=== PATIENT | female | born 2000 | race Caucasian/White ===

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

== ENCOUNTER 2021-04-21 13:29 | Inpatient (IN) | payer MEDICAID, SELFPAY ==
[2021-04-21] VITALS (55 sets, daily range): BP systolic 106–189; BP diastolic 58–126; PULSE 53–77; RESP 17; TEMP 35.9–37.1; O2SAT 90–100; BMI 28.9
[2021-04-21 13:43] LABS: Amphetamines Screen Urine Negative (Negative); Barbiturates Screen Urine Negative (Negative); Benzodiazepines Screen Urine Negative (Negative); Cocaine Screen Urine Negative (Negative); Opiate Screen Urine Negative (Negative); PCP Screen Urine Negative (Negative); THC Screen Urine Positive (Negative)
[2021-04-21 13:48] LABS: Bilirubin Urine Neg (Negative); Blood Urine Neg (Negative); Glucose Urine UA Norm (Normal); Ketones Urine 1+ (Negative); Leukocyte Esterase Urine Trace (Negative); Nitrate Urine Negative (Negative); Protein Urine Neg (Negative); RBC Urine 0-4 /hpf (0-2); Specific Gravity, Urine 1.015 (1.005-1.030); Squamous Epithelial Cell Urine 15-25 /hpf (0-5); Urine Appearance Clear (CLEAR); Urine Color Yellow (Yellow); Urobilinogen Urine Neg (Negative); WBC Urine 0-4 /hpf (0-5); pH Urine 7 (5-7)
[2021-04-21 13:49] LABS: Add Urine Culture? No; Bacteria Urine TRACE /hpf
[2021-04-21] MEDS: lactated ringers 1,000 ML 999 ML IV ×2 (14:08→15:29)
[2021-04-21] MEDS: oxytocin 30 UNIT/500 ML BAG IV (14:09)
[2021-04-21] MEDS: ampicillin 2,000 MG in sodium chloride 0.9% (plus) 50 ML 100 MG IV (14:12)
[2021-04-21 14:25] LABS: Basophils % 0.2 %; Eosinophils # 0.1 10^3/uL (0.0-0.8); Eosinophils % 0.7 %; Hematocrit 32.8 % (37.0-47.0); Hemoglobin 10.9 g/dL (11.5-15.3); Lymphocytes # 2.7 10^3/uL (1.5-6.5); Lymphocytes % 21.7 %; Mean Corpuscular HGB Conc 33.2 g/dL (30.0-36.0); Mean Corpuscular Hemoglobin 29.3 pg (28.0-34.0); Mean Corpuscular Volume 88.2 fl (81-99); Mean Platelet Volume 10.4 fL (7.4-10.4); Monocytes # 0.8 10^3/uL (0.2-0.9); Monocytes % 6.9 %; Neutrophils % 69.3 %; Nucleated Red Blood Cells % 0 %; Platelet Count 253 10^3/cmm (130-400); Red Blood Count 3.72 10^6/uL (4.1-5.3); Red Cell Distribution Width 13.7 % (12.1-15.1); White Blood Count 12.3 10^3/uL (4.5-13.0)
--- NOTE | 2021-04-21 16:25 | ANES.PREANE2 ---
Pre-Anesthetic Assessment Height/Weight: Height 1.65 m Weight 78.925 kg Temp Pulse Resp BP Pulse Ox 97.9 F 60 17 130/82 99 04/21/21 15:40 04/21/21 16:21 04/21/21 13:43 04/21/21 16:21 04/21/21 16:01 epidural Familial anesthetic complications: none Was Beta Shana taken within 24 hours: N/A Was Clonidine taken within 24 hours: N/A Last intake: > 8hrs Social No alcohol and No tobacco Exam alert, oriented x 3, clear to auscultation bilaterally and regular rate & rhythm Airway Mallampati: Class III Dentition: full Anesthetic Plan ASA status: 2 Anesthesia: Regional (specify below) Risk of > 500 ml blood loss (7ml/kg in children): Yes, adequate IV access and fluids planned Medications/Allergies Home Medications Medication Instructions Recorded Confirmed Last Taken Type PNV 153-FA 400 mcg-om3 35 mg-dha 1 tab PO BID 10/17/20 04/21/21 Unknown History 25 mg-epa 5 mg-fish oil chew tablet ( Gummies) Allergies Allergy/AdvReac Type Severity Reaction Status Date / Time No Known Allergies Allergy Verified 10/17/20 08:34 Current Medications Generic Name Dose Route Start Last Admin Trade Name Freq PRN Reason Stop Dose Admin Ropivacaine 200 mg in 100 mls @ 13 mls/hr 04/21/21 14:00 04/21/21 15:37 Naropin Premix EPIDURAL 13 mls/hr .Q7H42M BALBINA Administration Lactated Ringer's 1,000 mls @ 999 mls/hr 04/21/21 13:48 04/21/21 15:56 Lactated Ringers IV 500 mls/hr .Q1H1M PRN Infusion See label comments Oxytocin 30 unit in 500 mls @ 1 mls/hr 04/21/21 14:00 04/21/21 16:00 Pitocin IV 11 milliunit/min .Q24H BALBINA 11 mls/hr Titration Protocol 1 MILLIUNIT/MIN PFSH Anesthesia Medical History Intestinal malrotation CT scan [facility] 05/2020 MDD (major depressive disorder) PTSD (post-traumatic stress disorder) Surgical History History of cholecystectomy History of gastroschisis Social History Smoking and tobacco status: former smoker Second hand smoke exposure: No Current gender identity: Female Female Reproductive History : 1 Data Anesthesia : 04/21/21 14:00 Short CBC 04/21/21 Range/Units 14:00 WBC 12.3 (4.5-13.0) 10^3/uL Hgb 10.9 L (11.5-15.3) g/dL Hct 32.8 L (37.0-47.0) % MCV 88.2 (81-99) fl Plt Count 253 (130-400) 10^3/cmm Neut % (Auto) 69.3 % Neut # (Auto) 8.50 H (1.8-8.0) 10^3/uL Urine 04/21/21 Range/Units 13:10 Urine Color Yellow (Yellow) Urine Appearance Clear (CLEAR) Urine pH 7 (5-7) Ur Specific [place] 1.015 (1.005-1.030) Urine Protein Neg (Negative) Urine Glucose (UA) Norm (Normal) Urine Ketones 1+ H (Negative) Urine Nitrate Negative (Negative) Urine Bilirubin Neg (Negative) Ur Leukocyte Esterase Trace H (Negative) Urine RBC 0-4 H (0-2) /hpf Urine WBC 0-4 H (0-5) /hpf Cardiac Studies: No Data to Display
--- NOTE | 2021-04-21 16:26 | ANES.PROC ---
Anesthesia Procedures Procedure/Date: 04/21/21 Epidural: Time Out Performed: Yes Consents Signed: Procedure Consent Consent: requested by attending/covering physician, from patient, from other, patient agrees to proceed and emergency procedure Lumbar Level: L3-L4 Epidural position: sitting Epidural procedure: sterile prep of area, 1% lidocaine to numb the area, 18 g needle, negative for paresthesia passed, neg for paresthesia, test dose given, 1.5% xylocaine 1:200k epi (5 cc), 0.2% Ropivacaine bolus ml, placed PCEA, no systemic response, sterile dressing applied, L.U.D. no apparent complications and 0.2% Ropiavacaine @ mls/hr (13)
[2021-04-21] MEDS: dextrose 5%-lactated ringers 1,000 ML 125 ML IV (17:38)
[2021-04-21] MEDS: ampicillin 1,000 MG in sodium chloride 0.9% (plus) 50 ML 100 MG IV (17:55)
--- NOTE | 2021-04-21 18:58 | P.HP_ITS ---
Providers/Chief Complaint Admitting Physician: Ramirez Houston MD Primary DIABETIC EDUCATOR: Ainsley Landa Chief Complaint: possible ROM HPI DIABETIC EDUCATOR History of Present Illness Malinda Orozco is a 21 year old 1 female at 36 weeks and 5 days per first trimester and 20-week ultrasound. She presented to the hospital after leaking fluid since last night. She arrived at her doctor's office today and she was sent here for further evaluation. Upon arrival here she was found to be nitrazine positive and found to be grossly ruptured. As result she was admitted and augmented. Present Details : 1 Para: 0 Labs Rubella: Immune RPR: Negative GBS: Unknown Review of Systems General: Reports: 10 or more systems reviewed and unremarkable except in HPI and below Const: Reports: fatigue; Denies: fever(s) Eyes: Denies: change in vision Card: Denies: chest pain Musc: Reports: back pain Martin/Lymph: Denies: easy bruising Medications/Allergies Home Medications Medication Instructions Recorded Confirmed Last Taken Type PNV 153-FA 400 mcg-om3 35 mg-dha 1 tab PO BID 10/17/20 04/21/21 Unknown History 25 mg-epa 5 mg-fish oil chew tablet ( Gummies) Allergies Allergy/AdvReac Type Severity Reaction Status Date / Time No Known Allergies Allergy Verified 10/17/20 08:34 PFSH DIABETIC EDUCATOR PFSH: Medical History Intestinal malrotation CT scan [facility] 05/2020 MDD (major depressive disorder) PTSD (post-traumatic stress disorder) Surgical History History of cholecystectomy History of gastroschisis Social History Smoking and tobacco status: former smoker Second hand smoke exposure: No Current gender identity: Female Vitals/I&O/Wt Last Vital Signs Temp 97.9 F 04/21/21 15:40 Pulse 67 04/21/21 18:48 Resp 17 04/21/21 13:43 BP 114/61 04/21/21 18:48 Pulse Ox 99 04/21/21 16:01 04/21/21 04/21/21 04/21/21 06:59 14:59 22:59 Intake Total 1.10 / 1.10 1509.30 / 1510.40 Balance 1.10 / 1.10 1509.30 / 1510.40 Weight last 48 hrs Weight 174 lb Physical Exam Const: COMMON NORMALS: patient oriented x3 and alert HENMT: COMMON NORMALS: moist oral mucous membranes HEAD & SCALP: normal to inspection Chest: COMMONS NORMALS: normal inspection of the chest Resp: COMMON NORMALS: clear to auscultation bilaterally AUSCULTATION: clear to auscultation bilaterally Cardio: COMMON NORMALS: regular rate and regular rhythm RATE: regular rate RHYTHM: regular rhythm GI: INSPECTION: Yes normal to inspection and Yes other (Gravid) Extremity: COMMON NORMALS: normal to inspection GENERAL: Yes edema (Trace) Neuro: COMMON NORMALS: patient oriented x3, moves all extremities and no sensory deficits noted SENSORIUM/ORIENTATION: Yes alert Psych: COMMON NORMALS: mental status grossly normal Skin: COMMON NORMALS: no rashes or lesions noted GENERAL SKIN EXAM: no rashes or lesions noted Urinary Catheter Management: Reynolds Latex: Cath Placed During This Visit: yes Urinary Catheter Date of Insertion: 04/21/21 Urinary Catheter Time of Insertion: 16:00 Data : 04/21/21 14:00 A&P Assessment and plan (1) 36 weeks gestation of : Since the patient appeared to have spontaneous rupture membranes since the night prior to admission to the hospital, decision was made to proceed with Pitocin. Patient was placed on high-dose Pitocin. Her GBS status is unknown. She is placed on ampicillin. Drug screen will be performed. Status: Acute (2) Spontaneous rupture of membranes: Status: Acute Attestations Medical Necessity Statement*: Routine labor and care. Coding Level of Care Code Acute Build And Release Manager for Chg Fwd Diagnoses 36 weeks gestation of Z3A.36 Spontaneous rupture of membranes
--- NOTE | 2021-04-21 19:03 | P.PCNOB_ITS ---
Delivery Note: Date of delivery: April 21, 2021 Pre-delivery diagnoses: 21-year-old 1 at 36 weeks and 5 days estimated gestational age presenting with spontaneous rupture membranes Post-delivery diagnoses: Spontaneous vaginal delivery Procedure: Spontaneous vaginal delivery Delivering Physician: Ramirez Houston Findings: 100 Pre-Delivery Course: The patient presented to the hospital with spontaneous rupture membranes. She was not having consistent contractions. She was placed on high-dose Pitocin. She was also started on ampicillin because her GBS status was unknown. She received 2 doses of ampicillin. She progressed to complete. Delivery: DELIVERY: The patient progressed to complete without difficulty. She delivered a female with a weight of 6 pound 9 ounces with Apgars of 8, 9. The baby was delivered from the JATINDER position and placed on the mother's abdomen. The cord was then clamped and cut. There was a nuchal cord x1. There was no meconium. The placenta and 3 vessel cord were delivered intact shortly thereafter. The perineum and vaginal vault were carefully examined. A first- degree left vaginal wall laceration was noted that did not require repair. Both the mother and the baby were in stable condition. Post-Delivery Status: Good A&P Assessment and plan (1) Spontaneous rupture of membranes: Status: Acute (2) 36 weeks gestation of : Status: Acute (3) Spontaneous vaginal delivery: I anticipate routine care. Status: Acute (4) Marijuana abuse: Drug screen Status: Acute Coding Level of Care Code Acute Corporation Secretary for g Fwd Diagnoses Spontaneous rupture of membranes 36 weeks gestation of Z3A.36 Spontaneous vaginal delivery O80 Marijuana abuse F12.10
[2021-04-21] MEDS: lanolin oint 7 gm 1 APPLIC TOPICAL (19:47)
[2021-04-21] MEDS: benzocaine-menthol 78 gm Canister 1 SPRAY TOPICAL (19:47)
[2021-04-21] MEDS: ibuprofen 800 mg tablet PO (21:24)
[2021-04-21] MEDS: ondansetron 2 mg/ML SDV 2 mL 4 MG IVP (21:25)
[2021-04-22 00:40] VITALS: BP 119/76; PULSE 76; TEMP 36.9; O2SAT 98
[2021-04-22 02:26] VITALS: BP 120/73; PULSE 79; TEMP 36.7; O2SAT 98
[2021-04-22 04:30] VITALS: BP 111/69; PULSE 51; TEMP 36.8; O2SAT 98
[2021-04-22 07:04] LABS: Hematocrit 29.5 % (37.0-47.0); Hemoglobin 9.6 g/dL (11.5-15.3); Mean Corpuscular HGB Conc 32.5 g/dL (30.0-36.0); Mean Corpuscular Hemoglobin 29.3 pg (28.0-34.0); Mean Corpuscular Volume 89.9 fl (81-99); Mean Platelet Volume 10.1 fL (7.4-10.4); Platelet Count 215 10^3/cmm (130-400); Red Blood Count 3.28 10^6/uL (4.1-5.3); Red Cell Distribution Width 13.8 % (12.1-15.1); White Blood Count 14.7 10^3/uL (4.5-13.0)
[2021-04-22] MEDS: prenatal vitamin Capsule 1 CAP PO (08:09)
[2021-04-22] MEDS: ibuprofen 800 mg tablet PO ×3 (08:09→21:29)
[2021-04-22] MEDS: docusate sodium 100 mg Capsule PO (08:09)
[2021-04-22 10:30] VITALS: BP 129/80; PULSE 74; RESP 16; TEMP 36.7; O2SAT 96
--- NOTE | 2021-04-22 12:52 | ANE.PACU2 ---
Inpatient post-anesthesia follow up: Airway intact: Yes Vital signs: Temperature 98.1 F Pulse Rate 74 Respiratory Rate 16 Blood Pressure 129/80 Pulse Oximetry 96 Oxygen Delivery Me thod Room Air Oxygen Flow Rate Fraction of Inspir ed Oxygen Hydration adequate: Yes Nausea and vomiting: No Pain level: 2 Mental status: Baseline
[2021-04-22 15:45] VITALS: BP 126/81; PULSE 74; RESP 16; TEMP 36.7; O2SAT 98
--- NOTE | 2021-04-22 18:39 | PM.OBGYPN ---
INDUSTRIAL SAFETY AND HEALTH SPECIALIST Subjective Labor: Station: +2 Amniotic Membrane Status: Leaking Monitor Mode: Palpation Contraction Pattern: Regular Status: Category I Vitals/I&O/Wt Last Vital Signs Temp 98.0 F 04/22/21 15:45 Pulse 74 04/22/21 15:45 Resp 16 04/22/21 15:45 BP 126/81 04/22/21 15:45 Pulse Ox 98 04/22/21 15:45 04/22/21 04/22/21 04/22/21 06:59 14:59 22:59 Output Total 300 / 1700 Balance -300 / 1237.500 Weight last 48 hrs Weight 174 lb Physical Exam Narrative: The patient is alert. She appears comfortable. Her heart has a regular rate and rhythm with no murmurs appreciated. Lungs are clear to auscultation bilaterally. Her fundus is firm and below the umbilicus. Urinary Catheter Management: Reynolds Latex: Cath Placed During This Visit: yes, but has since been removed by the nurse Reason for Continuing Indwelling Catheter: Decision to DC Catheter Urinary Catheter Date of Insertion: 04/21/21 Urinary Catheter Time of Insertion: 16:00 Date Urinary Catheter Removed: 04/21/21 Time Urinary Catheter Discontinued: 18:20 Data : 04/22/21 06:45 Micro: Microbiology 04/21/21 13:10 Chlamydia trachomatis (NAHED) - Final Urine Random Neisseria gonorrhoeae (NAHED) - Final A&P Assessment and plan (1) Spontaneous vaginal delivery: The patient is doing well. Her pain is well controlled. Her bleeding is within normal limits. She is still having some difficulty with breast-feeding. Status: Acute Attestations Medical Necessity Statement*: Routine care. I anticipate she will be discharged home tomorrow. Coding Level of Care Code Acute Cash Register Repairer for Chg Fwd Diagnoses Spontaneous vaginal delivery O80
[2021-04-22 21:42] VITALS: BP 132/76; PULSE 64; RESP 16; O2SAT 98
--- NOTE | 2021-04-23 01:10 | PM.OBGYDC ---
Discharge Providers SENIOR TELECOMMUNICATIONS CONSULTANT Date of Admission: 04/21/21 13:29 Date of Discharge: 04/23/21 Attending Provider at Admission: Ramirez Houston MD Attending Provider at Discharge: Ramirez Houston MD Diagnoses at Discharge Discharge Diagnosis (1) Spontaneous vaginal delivery: Status: Acute (2) Marijuana abuse: Status: Acute (3) Spontaneous rupture of membranes: Status: Acute (4) 36 weeks gestation of : Status: Acute Reason for Visit Reason for Visit: possible ROM Hospital Course Hospital Course The patient presented to the hospital with spontaneous rupture of membranes. She was then placed on Pitocin and ampicillin to augment her labor and to cover her due to her unknown group B strep status. She progressed to complete and had an unremarkable delivery of a healthy . Her course was unremarkable. Her bleeding was within normal limits. Her child initially breast-fed well, had a period where she was sleepy, then later began to breast-feed well prior to discharge. Her pain was well controlled. Information Peripartum Data: Infant Delivery Method: Vaginal Physical Exam Narrative: The patient is alert. She appears comfortable. Her heart has a regular rate and rhythm with no murmurs appreciated. Lungs are clear to auscultation bilaterally. Her fundus is firm and below the umbilicus. Urinary Catheter Management: Reynolds Latex: Cath Placed During This Visit: yes, but has since been removed by the nurse Reason for Continuing Indwelling Catheter: Decision to DC Catheter Urinary Catheter Date of Insertion: 04/21/21 Urinary Catheter Time of Insertion: 16:00 Date Urinary Catheter Removed: 04/21/21 Time Urinary Catheter Discontinued: 18:20 Discharge Data Studies Completed and Pending Laboratory Results WBC 14.7 10^3/uL (4.5-13.0) H 04/22/21 06:45 RBC 3.28 10^6/uL (4.1-5.3) L 04/22/21 06:45 Hgb 9.6 g/dL (11.5-15.3) L 04/22/21 06:45 Hct 29.5 % (37.0-47.0) L 04/22/21 06:45 MCV 89.9 fl (81-99) 04/22/21 06:45 MCH 29.3 pg (28.0-34.0) 04/22/21 06:45 MCHC 32.5 g/dL (30.0-36.0) 04/22/21 06:45 RDW 13.8 % (12.1-15.1) 04/22/21 06:45 Plt Count 215 10^3/cmm (130-400) 04/22/21 06:45 MPV 10.1 fL (7.4-10.4) 04/22/21 06:45 Neut % (Auto) 69.3 % 04/21/21 14:00 Lymph % (Auto) 21.7 % 04/21/21 14:00 [place] % (Auto) 6.9 % 04/21/21 14:00 Eos % (Auto) 0.7 % 04/21/21 14:00 Baso % (Auto) 0.2 % 04/21/21 14:00 Neut # (Auto) 8.50 10^3/uL (1.8-8.0) H 04/21/21 14:00 Lymph # (Auto) 2.7 10^3/uL (1.5-6.5) 04/21/21 14:00 [place] # (Auto) 0.8 10^3/uL (0.2-0.9) 04/21/21 14:00 Eos # (Auto) 0.1 10^3/uL (0.0-0.8) 04/21/21 14:00 Baso # (Auto) 0.0 10^3/uL (0.0-0.1) 04/21/21 14:00 Nucleated RBC % (auto) 0 % 04/21/21 14:00 Nucleated RBCs # 0.0 /100WBC 04/21/21 14:00 Urine Color Yellow (Yellow) 04/21/21 13:10 Urine Appearance Clear (CLEAR) 04/21/21 13:10 Urine pH 7 (5-7) 04/21/21 13:10 Ur Specific Barrett 1.015 (1.005-1.030) 04/21/21 13:10 Urine Protein Neg (Negative) 04/21/21 13:10 Urine Glucose (UA) Norm (Normal) 04/21/21 13:10 Urine Ketones 1+ (Negative) H 04/21/21 13:10 Urine Blood Neg (Negative) 04/21/21 13:10 Urine Nitrate Negative (Negative) 04/21/21 13:10 Urine Bilirubin Neg (Negative) 04/21/21 13:10 Urine Urobilinogen Neg mg/dL (Negative) 04/21/21 13:10 Ur Leukocyte Esterase Trace (Negative) H 04/21/21 13:10 Urine RBC 0-4 /hpf (0-2) H 04/21/21 13:10 Urine WBC 0-4 /hpf (0-5) H 04/21/21 13:10 Ur Squamous Epith Cells 15-25 /hpf (0-5) H 04/21/21 13:10 Amorphous Sediment Not Reportable 04/21/21 13:10 Urine Bacteria Trace /hpf (NONE) 04/21/21 13:10 Urine Opiates Screen Negative ng/mL (Negative) 04/21/21 13:10 Ur Barbiturates Screen Negative ng/mL (Negative) 04/21/21 13:10 Ur Phencyclidine Scrn Negative ng/mL (Negative) 04/21/21 13:10 Ur Amphetamines Screen Negative ng/mL (Negative) 04/21/21 13:10 U Benzodiazepines Scrn Negative ng/mL (Negative) 04/21/21 13:10 Urine Cocaine Screen Negative ng/mL (Negative) 04/21/21 13:10 U Marijuana (THC) Screen Positive ng/mL (Negative) H 04/21/21 13:10 Vitals Last Vital Signs Temp 98.0 F 04/22/21 15:45 Pulse 64 04/22/21 21:42 Resp 16 04/22/21 21:42 BP 132/76 04/22/21 21:42 Pulse Ox 98 04/22/21 21:42 Discharge Plan Discharge Patient Disposition: Home Condition: Stable Prescriptions: New ibuprofen 800 mg Tablet 800 mg PO TID Qty: 45 0RF Continued Gummies 400 mcg-35 mg- 25 mg-5 mg Tablet,Chewable 1 tab PO BID 0RF Discharge Orders: Discharge Order (Routine); Ordered 04/23/21 Ordered By: Ramirez Houston Referrals: Ainsley Landa DO [Staff Physician] - 05/12/21 2:20 pm Discharge Diet: Advance as tolerated Discharge Activity: Resume usual activity Patient Instructions: Depression (DC), Perineal Care (DC), Bleeding (DC), Preeclampsia and Eclampsia After Delivery (GEN), OB Food/Drug Interaction Guide, OB Care at Home, Opioid Safety, OB Vaginal Deliveries Discharge Attestations SENIOR TELECOMMUNICATIONS CONSULTANT Time Spent in Discharge Care*: less than 30 min Time Spent in Smoking Cessation: Time spent discussing smoking cessation with patient: 3 to 10 minutes Status at Discharge: Overall status at discharge: patient is progressing back to baseline Coding Level of Care Code Acute Director Stars for Imtiaz Fwd Diagnoses Spontaneous vaginal delivery O80 Marijuana abuse F12.10 Spontaneous rupture of membranes 36 weeks gestation of Z3A.36
[2021-04-23 04:00] VITALS: BP 134/82; PULSE 59; RESP 16; O2SAT 98
[2021-04-23] MEDS: docusate sodium 100 mg Capsule PO (09:27)
[2021-04-23] MEDS: ibuprofen 800 mg tablet PO (09:27)
[2021-04-23] MEDS: prenatal vitamin Capsule 1 CAP PO (09:27)
[2021-04-23 10:50] VITALS: BP 115/79; PULSE 90; RESP 16; TEMP 37; O2SAT 98
== END 2021-04-23 10:55 | disposition home or self-care (01) | DRG 806 ==
LOC: OPOB 13:29 → OBGYN 13:29
PROVIDERS: Admitting Provider Family Medicine; Visit Provider Family Medicine
DX: O69.9XX0 Labor and delivery complicated by cord complication, unspecified, not applicable or unspecified (principal); O99.324 Drug use complicating childbirth; Z37.0 Single live birth; O99.344 Other mental disorders complicating childbirth; F12.10 Cannabis abuse, uncomplicated; Z3A.36 36 weeks gestation of pregnancy; F32.9 Major depressive disorder, single episode, unspecified; F43.10 Post-traumatic stress disorder, unspecified
CPT/HCPCS: 12345; 36415; 51702; 59409; 80306; 81001; 83986; 85025; 85027; 87491; 87591; 99211; J0290; J2405; J2795